=== PATIENT | female | born 1950 ===

== ENCOUNTER 2018-02-17 09:21 | Emergency (ER) | payer MEDICARE ==
[2018-02-17 09:28] VITALS: BMI 20.5
[2018-02-17] MEDS ORDERED: Naproxen 550 mg Tab PO STA (09:43)
[2018-02-17] MEDS ORDERED: Naproxen 550 mg Tab PO ONE (09:49)
--- NOTE | 2018-02-17 10:21 | C.PDOC ---
History Of Present Illness 67-year-old female presents to the ED for evaluation of left upper back pain which began yesterday. Patient states pain is worse with movement of her left shoulder and sometimes radiates to her anterior shoulder. She denies injuries to the area, fever, chills, rashes, chest pain, shortness of breath, cough. Time Seen by Provider: 02/17/18 09:30 Chief Complaint (Nursing): Back Pain History Per: Patient History/Exam Limitations: no limitations Onset/Duration Of Symptoms: Hrs Current Symptoms Are (Timing): Still Present Quality Of Discomfort: "Pain" Severity: Moderate Previous Symptoms: Back Pain Associated Symptoms: denies: Incontinence, New Weakness, New Numbness Exacerbating Factor(s): Movement Additional History Per: Patient Past Medical History Reviewed: Historical Data, Nursing Documentation, Vital Signs Vital Signs: Last Vital Signs Temp 97.9 F 02/17/18 10:32 Pulse 76 02/17/18 10:32 Resp 20 02/17/18 10:32 BP 109/63 02/17/18 10:32 Pulse Ox 100 02/17/18 10:59 - Medical History PMH: Hypercholesterolemia, Osteoporosis Surgical History: Appendectomy - [facility] Procedures INJECT/INFUSE NEC (09/10/13) Family History: States: No Known Family Hx - Social History Hx Alcohol Use: No Hx Substance Use: No Review Of Systems Constitutional: Negative for: Fever, Chills Cardiovascular: Negative for: Chest Pain, Palpitations Respiratory: Negative for: Cough, Shortness of Breath Musculoskeletal: Positive for: Shoulder Pain (left ), Back Pain (left, upper ) Skin: Negative for: Rash Neurological: Negative for: Numbness Physical Exam - Physical Exam Appears: Non-toxic, Other (in mild to moderate pain ) Skin: Normal Color, Warm, Dry, No Rash (no vesicular lesions) Eye(s): bilateral: Normal Inspection Oral Mucosa: Moist Neck: Supple Cardiovascular: Rhythm Regular Respiratory: Normal Breath Sounds, No Rales, No Rhonchi, No Wheezing Back: No CVA Tenderness, No Vertebral Tenderness, Other (tenderness to palpation of left paraspinal area - left thoracic level approx T3-T5, that is worse with movement of left shoulder ) Extremity: Normal ROM, Capillary Refill (< 2 sec all digits ), No Deformity Neurological/Psych: Oriented x3 ED Course And Treatment ECG: Interpreted By Me, Viewed By Me ECG Rhythm: Sinus Rhythm ECG Interpretation: Normal Interpretation Of ECG: Normal Sinus Rhythm at rate 76bpm. Normal axis. No acute ST/T wave changes. Rate From EC O2 Sat by Pulse Oximetry: 100 (on RA) Pulse Ox Interpretation: Normal - Radiology CXR: Interpreted by Me, Viewed By Me CXR Interpretation: Yes: No Acute Disease. No: Infiltrates, Fracture, Pnemothorax Progress Note: Patient given PO Naprosyn and Flexeril. Chest Xray ordered and reviewed. Reevaluation Time: 10:25 Reassessment Condition: Improved (On reassessment, patient is resting comfortably and states her pain has improved. Rxs for Naprosyn and Flexeril given. Patient instructed to follow up with PMD/clinic in 1-2 days. She understands she should return to ED if symptoms worsen.) Disposition Counseled Patient/Family Regarding: Studies Performed, Diagnosis, Need For Followup, Rx Given - Disposition Referrals: [facility] [Outside] Disposition: HOME/ ROUTINE Disposition Time: 10:25 Condition: STABLE Additional Instructions: FOLLOW UP WITH YOUR DOCTOR/CLINIC IN 1-2 DAYS USE MEDICATIONS DIRECTED/NEEDED RETURN TO EMERGENCY ROOM IF SYMPTOMS WORSEN SEGUIMIENTO CON MONTEJO MDICO / CLNICA EN 1-2 ZUNIGA USE MEDICAMENTOS SEGN LO DIRIGIDO / NECESARIO REGRESE AL CARLOS DE EMERGENCIA SI LOS SNTOMAS EMPEORAN Prescriptions: Cyclobenzaprine [Flexeril] 10 mg PO BID PRN #15 tab PRN Reason: Muscle Spasm Naproxen 375 mg PO BID PRN #20 tablet PRN Reason: pain Instructions: Upper Back Pain (DC) Forms: [facility] (Albanian) Print Language: AZERI - POA Present On Arrival: None - Clinical Impression Clinical Impression: Left-sided thoracic back pain - Scribe Statement The provider has reviewed the documentation as recorded by the Scribe (Amada Escudero) Provider Attestation: All medical record entries made by the Scribe were at my direction and personally dictated by me. I have reviewed the chart and agree that the record accurately reflects my personal performance of the history, physical exam, medical decision making, and the department course for this patient. I have also personally directed, reviewed, and agree with the discharge instructions and disposition.
[2018-02-17 10:33] VITALS: BP 109/63; PULSE 76; RESP 20; TEMP 97.9
[2018-02-17 10:53] VITALS: O2SAT 100
--- NOTE | 2018-02-17 11:30 | RAD ---
HISTORY: left upper back pain COMPARISON: 09/08/2017 8 TECHNIQUE: Chest PA and lateral FINDINGS: LUNGS: No pulmonary infiltrate. Bilateral apical pleural thickening, grossly unchanged. PLEURA: No significant pleural effusion identified. No pneumothorax apparent. CARDIOVASCULAR: Normal. OSSEOUS STRUCTURES: No significant abnormalities. VISUALIZED UPPER ABDOMEN: Normal. OTHER FINDINGS: None. IMPRESSION: No acute infiltrate. Stable bilateral apical pleural thickening.
== END 2018-02-17 10:40 | disposition home or self-care (01) ==
LOC: C.ER 09:21
DX: M54.6 Pain in thoracic spine (principal); E78.00 Pure hypercholesterolemia, unspecified

== ENCOUNTER 2018-07-13 09:00 | Emergency (ER) | payer MEDICARE ==
[2018-07-13 09:01] VITALS: BMI 21.4
[2018-07-13 09:15] VITALS: BP 117/74; PULSE 92; RESP 18; TEMP 98.4; O2SAT 97
--- NOTE | 2018-07-13 09:34 | C.PDOC ---
History Of Present Illness 67 y/o female presents to ED with c/o non productive cough for 2 weeks associated with right upper back pain. Patient saw PMD 4 days ago and was given Z-pack, claritin and Tessalon, states she has been taking with no improvement. Patient denies fever, chills, abdominal pain, nausea, vomiting, diarrhea, chest pain or sob. Time Seen by Provider: 07/13/18 09:16 Chief Complaint (Nursing): Cough, Cold, Congestion History Per: Patient History/Exam Limitations: no limitations Onset/Duration Of Symptoms: Days Current Symptoms Are (Timing): Still Present Associated Symptoms: Cough Past Medical History Reviewed: Historical Data, Nursing Documentation, Vital Signs Vital Signs: Last Vital Signs Temp 98.4 F 07/13/18 09:14 Pulse 92 H 07/13/18 09:14 Resp 18 07/13/18 09:14 BP 117/74 07/13/18 09:14 Pulse Ox 97 07/13/18 09:14 - Medical History PMH: Hypercholesterolemia, Osteoporosis Surgical History: Appendectomy - [facility] Procedures INJECT/INFUSE NEC (09/10/13) Family History: States: No Known Family Hx - Social History Hx Alcohol Use: No Hx Substance Use: No Review Of Systems Constitutional: Negative for: Fever, Chills Cardiovascular: Negative for: Chest Pain Respiratory: Positive for: Cough. Negative for: Shortness of Breath Gastrointestinal: Negative for: Nausea, Vomiting Musculoskeletal: Positive for: Back Pain (upper) Skin: Negative for: Rash Physical Exam - Physical Exam Appears: Non-toxic, No Acute Distress Skin: Warm, Dry, No Rash Head: Atraumatic, Normacephalic Eye(s): bilateral: Normal Inspection Ear(s): Bilateral: Normal Oral Mucosa: Moist Throat: Normal, No Erythema, No Exudate Neck: Supple Cardiovascular: Rhythm Regular Respiratory: Normal Breath Sounds, No Rales, No Rhonchi, No Wheezing Gastrointestinal/Abdominal: Soft, No Tenderness, No Guarding, No Rebound Extremity: Bilateral: Atraumatic Neurological/Psych: Oriented x3, Normal Speech, Normal Cognition ED Course And Treatment O2 Sat by Pulse Oximetry: 97 (RA) Pulse Ox Interpretation: Normal Medical Decision Making Medical Decision Making: Impression: cough x2 weeks Plan: * CXR Ordered Progress: CXR viewed by me shows hyperinflation and degenerative changes, no infiltrate, pleural effusion, or pneumothorax Patient remained well afebrile and in no respiratory distress. Disposition Counseled Patient/Family Regarding: Diagnosis, Need For Followup, Rx Given - Disposition Referrals: Sarah Chambers MD [Non-Staff] - Disposition: HOME/ ROUTINE Disposition Time: 09:47 Condition: STABLE Additional Instructions: Turner radiografa de trax era normal, sin neumona. Acabado antibitico. [place] la medicina para la tos segn sea necesario. Regrese al departamento de emergencias en cualquier momento si los sntomas persisten o empeoran. Prescriptions: predniSONE [predniSONE Tab] 40 mg PO DAILY #10 tab Promethazine DM [Phenergan DM Syrup] 10 ml PO Q8 PRN #300 ml PRN Reason: Cough Instructions: Acute Bronchitis, Adult (DC) Print Language: SINHALA - POA Present On Arrival: None - Clinical Impression Clinical Impression: Bronchitis - PA / [employer]PER[employer]OR [employer] DEPARTMENT / Resident Statement MD/DO has reviewed & agrees with the documentation as recorded. - Scribe Statement The provider has reviewed the documentation as recorded by the Markellibchristine Hager All medical record entries made by the Markellibchristine were at my direction and personally dictated by me. I have reviewed the chart and agree that the record accurately reflects my personal performance of the history, physical exam, medical decision making, and the department course for this patient. I have also personally directed, reviewed, and agree with the discharge instructions and disposition.
--- NOTE | 2018-07-13 11:08 | RAD ---
Date of service: 07/13/2018 HISTORY: cough x2wks, upper back pain COMPARISON: 09/08/2017 and 02/17/2018. serial chest radiographs TECHNIQUE: Chest PA and lateral FINDINGS: LUNGS: Chronic interstitial lung disease. PLEURA: Fibronodular changes include pleural thickening at the apices. CARDIOVASCULAR: No aortic atherosclerotic calcification present. Normal cardiac size. No pulmonary vascular congestion. OSSEOUS STRUCTURES: No significant abnormalities. VISUALIZED UPPER ABDOMEN: Normal. OTHER FINDINGS: None. IMPRESSION: No active disease. No significant interval change compared to the prior examination(s). Concordant results with the preliminary interpretation rendered by the emergency department physician procedure.
== END 2018-07-13 09:59 | disposition home or self-care (01) ==
LOC: C.ER 09:00
DX: J40 Bronchitis, not specified as acute or chronic (principal)

== ENCOUNTER 2018-08-04 08:40 | Emergency (ER) | payer MEDICARE ==
[2018-08-04 08:40] VITALS: BMI 21.4
[2018-08-04 10:30] VITALS: BP 107/61; PULSE 61; RESP 20; TEMP 98.4
--- NOTE | 2018-08-04 10:46 | CT ---
Date of service: 08/04/2018 PROCEDURE: CT HEAD WITHOUT CONTRAST. HISTORY: Headache s/p head injury yesterday due to fall COMPARISON: The house arrest and I TECHNIQUE: Axial computed tomography images were obtained through the head/brain without intravenous contrast. Radiation dose: Total exam DLP = 945.41 mGy-cm. This CT exam was performed using one or more of the following dose reduction techniques: Automated exposure control, adjustment of the mA and/or kV according to patient size, and/or use of iterative reconstruction technique. FINDINGS: HEMORRHAGE: No intracranial hemorrhage. BRAIN: No mass effect or edema. No significant chronic microvascular ischemic changes. VENTRICLES: No obstructive hydrocephalus. CALVARIUM: No acute calvarial fracture seen.. PARANASAL SINUSES: Unremarkable as visualized. No significant inflammatory changes. MASTOID AIR CELLS: Unremarkable as visualized. No inflammatory changes. OTHER FINDINGS: None. IMPRESSION: No acute intracranial hemorrhage.
--- NOTE | 2018-08-04 10:55 | C.PDOC ---
History Of Present Illness Pt tripped and fell forward yesterday, hitting her head on the floor. - HPI Time Seen by Provider: 08/04/18 09:08 Chief Complaint (Nursing): Trauma History Per: Patient, Family Injury Occurred (Timing): Days Ago: (1) Location Of Injury: Right: Head Severity: Moderate Additional History Per: Prior Records - Fall Fall:Prior To Injury: Tripped Past Medical History Reviewed: Historical Data, Nursing Documentation, Vital Signs Vital Signs: Last Vital Signs Temp 98.4 F 08/04/18 10:29 Pulse 61 08/04/18 10:29 Resp 20 08/04/18 10:29 BP 107/61 08/04/18 10:29 Pulse Ox 20 L 08/04/18 10:29 - Medical History PMH: Hypercholesterolemia, Osteoporosis Surgical History: Appendectomy - [facility] Procedures INJECT/INFUSE NEC (09/10/13) Family History: States: Unknown Family Hx - Social History Hx Alcohol Use: No Hx Substance Use: No Review Of Systems Except As Marked, All Systems Reviewed And Found Negative. Constitutional: Negative for: Fever, Weakness Eyes: Negative for: Vision Change Cardiovascular: Negative for: Chest Pain Respiratory: Negative for: Shortness of Breath Gastrointestinal: Negative for: Vomiting, Abdominal Pain Musculoskeletal: Positive for: Back Pain. Negative for: Neck Pain Neurological: Positive for: Headache. Negative for: Weakness, Numbness, Seizures, Altered Mental Status Physical Exam - Physical Exam Appears: Non-toxic, No Acute Distress Skin: Normal Color, Warm, Dry Head: No Laceration, Other (Right periorbital ecchymosis) Eye(s): bilateral: PERRL, EOMI Neck: Normal ROM, No Midline Cervical Tenderness, No Step Off Deformity, Supple Chest: Symmetrical, No Deformity Cardiovascular: Rhythm Regular Respiratory: Normal Breath Sounds, No Accessory Muscle Use Gastrointestinal/Abdominal: Soft, No Tenderness Back: No Vertebral Tenderness Extremity: Normal ROM, No Tenderness (No bony tenderness), No Deformity, Other (Abrasion on right leg) Neurological/Psych: Oriented x3, Normal Motor, Normal Sensation ED Course And Treatment O2 Sat by Pulse Oximetry: 98 Pulse Ox Interpretation: Normal - CT Scan/US CT head Other Rad Studies (CT/US): Read By Radiologist, Radiology Report Reviewed CT/US Interpretation: IMPRESSION: No acute intracranial hemorrhage. Reassessment Condition: Improved Disposition Counseled Patient/Family Regarding: Studies Performed, Diagnosis, Need For Followup, Rx Given - Disposition Referrals: Sarah Chambers MD [Non-Staff] - Disposition: HOME/ ROUTINE Disposition Time: 10:57 Condition: STABLE Additional Instructions: Follow up with your doctor this week. Return to the ER if you develop redness, swelling, pus drainage, fever, vomiting, weakness, numbness, worsening of symptoms or if you have any other concerns. Prescriptions: Bacitracin Ointment [Bacitracin] 1 applic TOP BID #1 tube Naproxen 375 mg PO BID PRN #20 tablet PRN Reason: Pain, Moderate (4-7) Instructions: Head Injury (ED), Skin Abrasions (DC) Forms: [employer] (Turkish) Print Language: MALAY - Clinical Impression Clinical Impression: Minor closed head injury, Abrasion of right leg
[2018-08-04 10:58] VITALS: O2SAT 98
[2018-08-04] MEDS ORDERED: Bacitracin 500 Units/gm Oint Foilpak UD ONE (11:02)
== END 2018-08-04 11:10 | disposition home or self-care (01) ==
LOC: C.ER 08:40
DX: S09.90XA Unspecified injury of head, initial encounter (principal); S80.811A Abrasion, right lower leg, initial encounter; W01.0XXA Fall on same level from slipping, tripping and stumbling without subsequent striking against object, initial encounter; Y92.9 Unspecified place or not applicable